=== PATIENT | female | born 1990 | race Caucasian/White ===

== ENCOUNTER 2021-11-27 21:48 | Emergency (ER) | payer MEDICAID ==
[~2021-11-27] VITALS: Ht 165.1 cm; Wt 113.4 kg
[2021-11-27] MEDS ORDERED: ACETAMINOPHEN 500 MG TAB PO ONE ×2 (22:05→22:15)
[2021-11-28 01:05] VITALS: BP 148/83
== END 2021-11-28 01:21 | disposition home or self-care (01) ==
LOC: EDBD 21:48 → ER 21:50
DX: M25.512 Pain in left shoulder (principal); M79.18 Myalgia, other site; M54.2 Cervicalgia; Z88.0 Allergy status to penicillin; Z88.2 Allergy status to sulfonamides; Z87.440 Personal history of urinary (tract) infections
CPT/HCPCS: 70450; 71250; 72125; 73030; 74176